=== PATIENT | male | born 1995 ===

== ENCOUNTER 2019-04-26 17:35 | Outpatient (REF) | payer BC, SELFPAY ==
[2019-04-26 21:21] LABS: Calculated LDL 77 mg/dL (<100); Cholesterol 160 mg/dL (<200); HDL Cholesterol 42 mg/dL (40-60); Triglyceride 206 mg/dL (<150)
== END 2019-04-26 17:55 ==
LOC: NCHCN 17:35
PROVIDERS: PCP Pediatrics; Visit Provider Nurse Practitioner Family
DX: Z00.00 Encounter for general adult medical examination without abnormal findings (principal); Z13.220 Encounter for screening for lipoid disorders
CPT/HCPCS: 80061